=== PATIENT | male | born 1990 | race Caucasian/White ===

== ENCOUNTER 2024-04-18 13:59 | Emergency (ER) | payer MEDICAID ==
[~2024-04-18] VITALS: Ht 180.3 cm; Wt 79.0 kg
[2024-04-18 14:01] VITALS: O2SAT 98
[2024-04-18 17:42] VITALS: BP 144/80; PULSE 68; RESP 18; TEMP 36.9; O2SAT 98
[2024-04-23] MEDS ORDERED: POTA-205 MT (10:05)
[2024-04-23] MEDS ORDERED: ONDA4TAB50 MT (10:05)
== END 2024-04-18 17:43 | disposition home or self-care (01) ==
LOC: ER 13:59
DX: F15.90 Other stimulant use, unspecified, uncomplicated (principal); F17.200 Nicotine dependence, unspecified, uncomplicated
CPT/HCPCS: 99283

== ENCOUNTER 2024-04-18 19:08 | Emergency (ER) | payer MEDICAID ==
[~2024-04-18] VITALS: Ht 175.3 cm; Wt 74.3 kg
[2024-04-18 19:26] VITALS: BP 131/73; PULSE 96; RESP 19; TEMP 37.2; O2SAT 100
[2024-04-23] MEDS ORDERED: POTA-205 MT (10:05)
[2024-04-23] MEDS ORDERED: ONDA4TAB50 MT (10:05)
== END 2024-04-19 03:18 | disposition left against medical advice (07) ==
LOC: ER 19:08
DX: R10.9 Unspecified abdominal pain (principal); Z53.21 Procedure and treatment not carried out due to patient leaving prior to being seen by health care provider